=== PATIENT | male | born 2000 | race African-American/Black ===

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

== ENCOUNTER 2022-12-05 20:31 | Emergency (ER) | payer MEDICAID ==
[~2022-12-05] VITALS: Ht 172.7 cm; Wt 109.0 kg
[~2022-12-05 20:31] MED LIST: CEPH500T PO; IBUP-2029 PO; SULF1TAB48 PO
[2022-12-05 20:39] VITALS: BP 144/88
[2022-12-05] MEDS ORDERED: ACET-2708 MT (23:24)
[2022-12-05] MEDS ORDERED: FAMO-135 MT (23:24)
== END 2022-12-06 00:29 | disposition home or self-care (01) ==
LOC: ER 20:31
DX: R10.9 Unspecified abdominal pain (principal); R11.2 Nausea with vomiting, unspecified; R19.7 Diarrhea, unspecified; Z91.048 Other nonmedicinal substance allergy status
CPT/HCPCS: 99282